=== PATIENT | female | born 1955 | race Caucasian/White ===

== ENCOUNTER 2017-03-18 12:01 | Emergency (ER) | payer SELFPAY ==
[~2017-03-18] VITALS: Ht 162.6 cm; Wt 64.0 kg
[2017-03-18 13:21] LABS: CARBON DIOXIDE 29 mEq/L (21-32); CHLORIDE 104 mEq/L (98-107); TROPONIN I < 0.02 ng/mL (0.00-0.04)
[2017-03-18 17:27] VITALS: BP 165/98
== END 2017-03-18 17:50 | disposition home or self-care (01) ==
LOC: ER 12:31
DX: K64.4 Residual hemorrhoidal skin tags (principal); Z90.49 Acquired absence of other specified parts of digestive tract; Z90.710 Acquired absence of both cervix and uterus; Z98.890 Other specified postprocedural states
CPT/HCPCS: 36415; 76705; 80053; 83690; 84484; 99285

== ENCOUNTER 2017-04-07 19:22 | Inpatient (IN) | payer SELFPAY ==
[~2017-04-07] VITALS: Ht 160 cm; Wt 64.0 kg
[2017-04-07] MEDS ORDERED: MORPHINE SULFATE 4 MG/ML CPJ (NOT FOR IM USE) IV STA (22:23)
[2017-04-07] MEDS ORDERED: SODIUM CHLORIDE 0.9% 1,000 ML IV ONE (22:23)
[2017-04-07] MEDS ORDERED: ONDANSETRON HCL 4MG/2ML VIAL IV STA (22:23)
[2017-04-07 22:54] LABS: CLARITY URINE CLEAR (CLEAR); COLOR URINE YELLOW (YELLOW); GLUCOSE URINE NEGATIVE (NEGATIVE); KETONES URINE NEGATIVE (NEGATIVE); LEUKOCYTE ESTERASE URINE NEGATIVE (NEGATIVE); NITRITE URINE NEGATIVE (NEGATIVE); OCCULT BLOOD URINE NEGATIVE (NEGATIVE); PH URINE 5.5 (4.5-8.0); PROTEIN URINE NEGATIVE (NEGATIVE); SPECIFIC GRAVITY URINE 1.019 (1.005-1.030); UROBILINOGEN URINE 0.2 E.U./dL (0.2-1.0)
[2017-04-07 23:05] LABS: BASOPHILS % 0.2 % (0.0-2.0); EOSINOPHILS % 1.8 % (0.0-5.0); HEMATOCRIT. 33.1 % (36.0-48.0); HEMOGLOBIN. 11.3 g/dL (12.0-16.0); LYMPHOCYTES % 37.2 % (20.0-50.0); MEAN CORPUSCULAR VOLUME 90.7 fL (81.0-99.0); MEAN PLATELET VOLUME 7.4 fl (7.4-10.4); MONOCYTES % 14.4 % (2.0-8.0); NEUTROPHILS % 46.4 % (40.0-76.0); PLATELET 277 x1000/uL (130-400); RED BLOOD CELL COUNT 3.65 mill/uL (4.2-5.4); RED CELL DISTRIBUTION WIDTH 14.3 % (11.6-14.6)
[2017-04-07 23:08] LABS: CHLORIDE 105 mEq/L (98-107)
[2017-04-07 23:09] LABS: PROTHROMBIN TIME 10.3 sec
[2017-04-07 23:13] LABS: CARBON DIOXIDE 27 mEq/L (21-32)
[2017-04-07 23:19] LABS: TROPONIN I < 0.02 ng/mL (0.00-0.04)
[2017-04-08] MEDS ORDERED: MORPHINE SULFATE 4 MG/ML CPJ (NOT FOR IM USE) IV ONE (00:15)
[2017-04-08] MEDS ORDERED: KETOROLAC 15MG/ML VIAL IV ONE (00:15)
[2017-04-08] MEDS ORDERED: ONDANSETRON HCL 4MG/2ML VIAL IV ONE (00:15)
[2017-04-08 04:20] VITALS: BP 154/94
[2017-04-08] MEDS ORDERED: ONDANSETRON HCL 4MG/2ML VIAL IV PRN (04:45)
[2017-04-08] MEDS ORDERED: CLONIDINE 0.1MG TABLET PO PRN (04:45)
[2017-04-08] MEDS ORDERED: HYDROMORPHONE HCL/PF 2MG/ML CPJ IV PRN (04:45)
[2017-04-08] MEDS: DEXT 5%/0.45% NACL 1000ML 1,000 ML IV SCH ×2 (06:31→18:51)
[2017-04-08 08:00] VITALS: BP 131/86
[2017-04-08 08:13] LABS: BASOPHILS % 0.3 % (0.0-2.0); EOSINOPHILS % 0.8 % (0.0-5.0); HEMATOCRIT. 32.7 % (36.0-48.0); HEMOGLOBIN. 11.3 g/dL (12.0-16.0); LYMPHOCYTES % 30.9 % (20.0-50.0); MEAN CORPUSCULAR HEMOGLOBIN 30.4 pg (28.0-32.0); MEAN CORPUSCULAR VOLUME 88.2 fL (81.0-99.0); MONOCYTES % 13.1 % (2.0-8.0); NEUTROPHILS % 54.9 % (40.0-76.0); PLATELET 248 x1000/uL (130-400); RED BLOOD CELL COUNT 3.71 mill/uL (4.2-5.4)
[2017-04-08 08:36] LABS: CARBON DIOXIDE 27 mEq/L (21-32); CHLORIDE 106 mEq/L (98-107)
[2017-04-08] MEDS: PANTOPRAZOLE SODIUM 40 MG/VIAL IV SCH (08:49)
[2017-04-08 11:37] LABS: TOTAL IRON BINDING CAPACITY 323 ug/dL (250-450)
[2017-04-08 12:00] VITALS: BP 140/87
[2017-04-08 16:00] VITALS: BP 152/98
[2017-04-08] MEDS ORDERED: SORBITOL 70% SOLN 30ML PO SCH ×2 (18:00→22:00)
[2017-04-08 20:00] VITALS: BP 136/87
[2017-04-09] VITALS: BP 108/77
[2017-04-09 04:00] VITALS: BP 116/83
[2017-04-09 06:25] LABS: PARTIAL THROMBOPLASTIN TIME 22.2 sec (24.0-34.0); PROTHROMBIN TIME 10.5 sec
[2017-04-09] MEDS: DEXT 5%/0.45% NACL 1000ML 1,000 ML IV SCH ×2 (07:34→20:40)
[2017-04-09 08:00] VITALS: BP 128/85
[2017-04-09] MEDS: PANTOPRAZOLE SODIUM 40 MG/VIAL IV SCH (09:37)
[2017-04-09] MEDS ORDERED: SIMETHICONE 40 MG/0.6 ML 30ML ONE (11:05)
[2017-04-09] MEDS ORDERED: MIDAZOLAM HCL 5 MG/5 ML VIAL ONE (11:05)
[2017-04-09] MEDS ORDERED: FENTANYL CITRATE/PF 50MCG/ML 2ML VIAL ONE (11:05)
[2017-04-09] MEDS ORDERED: MIDAZOLAM HCL 5 MG/5 ML VIAL IV ONE (11:07)
[2017-04-09] MEDS ORDERED: FENTANYL CITRATE/PF 50MCG/ML 2ML VIAL IV ONE (11:07)
[2017-04-09 12:00] VITALS: BP 144/91
[2017-04-09] MEDS ORDERED: SODIUM CHLORIDE 0.9% 10ML VIAL ONE (13:33)
[2017-04-09 16:00] VITALS: BP 106/70
[2017-04-09 20:00] VITALS: BP 129/82
[2017-04-09] MEDS: MUPIROCIN 2% OINT 22GM NS SCH (20:40)
[2017-04-10] VITALS: BP 113/69
[2017-04-10 04:00] VITALS: BP 121/76
[2017-04-10 08:00] VITALS: BP 137/88
[2017-04-10] MEDS: PANTOPRAZOLE SODIUM 40 MG/VIAL IV SCH (08:14)
[2017-04-10] MEDS: MUPIROCIN 2% OINT 22GM NS SCH (08:17)
[2017-04-10] MEDS: DEXT 5%/0.45% NACL 1000ML 1,000 ML IV SCH (10:15)
[2017-04-10 12:00] VITALS: BP 118/68
[2017-04-10 12:40] VITALS: BP 118/68
[2017-04-10] MEDS ORDERED: GADOBENATE DIMEGLUMINE 529 MG/ML 10ML IV ONE (14:04)
== END 2017-04-10 14:09 | disposition home or self-care (01) | DRG 253 ==
LOC: ER 21:33 → 6EST 04-08 00:29 → EDBEDREQ 04-08 00:37 → EDBEDREQSVC 04-08 00:37 → ENRESERV 04-08 03:11
PROVIDERS: ADMIT Hospitalist; ATTEND Hospitalist
PROC: 0DJ08ZZ Inspection of Upper Intestinal Tract, Via Natural or Artificial Opening Endoscopic (ICD-10-PCS; principal; 2017-04-08)
DX: K92.2 Gastrointestinal hemorrhage, unspecified (principal); K76.0 Fatty (change of) liver, not elsewhere classified; N28.1 Cyst of kidney, acquired; D64.9 Anemia, unspecified; K13.0 Diseases of lips; I10 Essential (primary) hypertension; N94.89 Other specified conditions associated with female genital organs and menstrual cycle; K82.8 Other specified diseases of gallbladder; K64.8 Other hemorrhoids; Z90.49 Acquired absence of other specified parts of digestive tract; Z90.710 Acquired absence of both cervix and uterus
CPT/HCPCS: 36415; 71010; 72197; 74176; 74183; 76700; 76830; 76856; 80048; 80053; 81003; 82270; 83540; 83550; 83690; 84484; 85025; 85610; 85730; 86850; 86900; 93005; 96361; 96365; 96375; 96376; 99285; A4216; A9577; C9113; J1885; J2250; J2270; J2405; J3010; J3490; J7030